=== PATIENT | female | born 1995 | race American Indian/Alaskan Native ===

== ENCOUNTER 2018-08-15 09:49 | Emergency (ER) | payer BC ==
[2018-08-15 09:59] VITALS: BMI 25.9
[2018-08-15 10:01] VITALS: BP 121/77; PULSE 96; RESP 18; TEMP 98; O2SAT 100
--- NOTE | 2018-08-15 10:20 | ED PDOC ---
HPI: General Adult Time Seen by Provider: 08/15/18 10:12 Chief Complaint (Provider): cyst History Per: Patient Additional Complaint(s): 23-year-old female presents with Bartholin's cyst ongoing for 1 year. Patient denies fever, chills or active drainage. In March of this year she was started on Keflex for the cyst but this did not help. Patient denies pain or active drainage at this time. Past Medical History Reviewed: Historical Data, Nursing Documentation, Vital Signs Vital Signs: Last Vital Signs Temp 98 F 08/15/18 09:59 Pulse 96 H 08/15/18 09:59 Resp 18 08/15/18 09:59 BP 121/77 08/15/18 09:59 Pulse Ox 100 08/15/18 09:59 - Medical History PMH: No Chronic Diseases - Surgical History Surgical History: No Surg Hx - Family History Family History: States: No Known Family Hx - Living Arrangements Living Arrangements: With Family - Social History Current smoker - smoking cessation education provided: No Alcohol: None Drugs: Denies - Home Medications Home Medications: Ambulatory Orders Medication Instructions Recorded Nitrofurantoin Macrocrystals 100 mg PO BID #14 cap 08/15/18 [Macrobid] - Allergies Allergies/Adverse Reactions: Allergies Allergy/AdvReac Type Severity Reaction Status Date / Time No Known Allergies Allergy Verified 08/15/18 10:20 Review of Systems ROS Statement: Except As Marked, All Systems Reviewed And Found Negative Constitutional: Negative for: Fever Genitourinary Female: Positive for: Other (Bartholin's cyst) Physical Exam - Reviewed Nursing Documentation Reviewed: Yes Vital Signs Reviewed: Yes - Physical Exam Appears: Positive for: Well, Non-toxic, No Acute Distress Skin: Positive for: Normal Color. Negative for: Rash Eye Exam: Positive for: Normal appearance Pelvic Exam: Positive for: Other (Indurated, mildly tender Bartholin's cyst noted to right labia majora, no central pointing or active drainage, no erythema or warmth) Extremity: Positive for: Normal ROM Neurologic/Psych: Positive for: Alert, Oriented - Laboratory Results Urine dip results: Positive for: Leukocyte Esterase (small). 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 Tinoco. He states patient can call his office to arrange for follow-up visit. Urinary tract infection noted, per prescription for Macrobid given. Patient instructed to contact Dr. Tinoco's office to arrange for follow up appt. Disposition - Clinical Impression Clinical Impression: Bartholin cyst, Urinary tract infection - Patient ED Disposition Is Patient to be Admitted: No Counseled Patient/Family Regarding: Studies Performed, Diagnosis, Need For Followup, Rx Given - Disposition Referrals: FAMILY PROVIDER,NO [Primary Care Provider] - Roger Tinoco DO [Staff Provider] - Disposition: Routine/Home Disposition Time: 11:16 Condition: STABLE Additional Instructions: Take prescription meds as directed. Follow-up with Dr. Tinoco in office next week. Call today to make an appt in office. Prescriptions: Nitrofurantoin Macrocrystals [Macrobid] 100 mg PO BID #14 cap Instructions: Urinary Tract Infection, Adult (DC), Bartholin's Gland Cyst
== END 2018-08-15 12:04 | disposition home or self-care (01) ==
LOC: H.ER 09:49 → SUPCPDRO 09:49 → H.ER 12:04
DX: N75.0 Cyst of Bartholin's gland (principal); N39.0 Urinary tract infection, site not specified